=== PATIENT | male | born 1980 | race Two or more races ===

== ENCOUNTER 2017-02-25 16:30 | Emergency (ER) | payer SELFPAY ==
[~2017-02-25] VITALS: Ht 175.3 cm; Wt 79.4 kg
[~2017-02-25 16:30] MED LIST: NKM; UNOBMED
[2017-02-25] MEDS ORDERED: Bacitracin Oint UD TOPIC ONE (17:00)
[2017-02-25] MEDS ORDERED: TdaP Vaccine 0.5ml Syr IM ONE (17:00)
[2017-02-25] MEDS ORDERED: Lidocaine 1% 10mg/ml/Epi 0.005mg/ml 30ml vial INJ ONE (17:00)
[2017-02-25 17:14] VITALS: BP 118/90
--- NOTE | 2017-02-25 17:23 | Emergency Room Report ---
History of Present Illness General Chief Complaint: Laceration Source: Patient (Melissa Garza) Present Illness HPI 37-year-old male presents emergency department brought by ambulance for altered mental status and facial laceration. History of present illness and ROS is limited due to poor patient cooperation in addition to language barrier. Patient is primarily Azeri speaking. Patient denies alcohol consumption. (Melissa Garza) Allergies: Coded Allergies: No Known Allergies (Unverified , 04/23/15) Patient History Limited by: language barrier, other - ETOH/AMS Past Medical History: see triage record Past Surgical History: none Pertinent Family History: none Reviewed Nursing Documentation: PMH: Agreed, PSxH: Agreed (Melissa Garza) Nursing Documentation-PMH Past Medical History: No Stated History Hx Cardiac Problems: No Hx Cancer: No Hx Gastrointestinal Problems: No Hx Neurological Problems: Yes Hx Seizures: Yes - due to alchohol withdrawal. (Melissa Garza) Review of Systems All Other Systems: limited - due to intoxication, and poor pt. cooperation. (Melissa Garza) Physical Exam Vital Signs Date Time Temp Pulse Resp B/P Pulse Ox O2 Delivery O2 Flow Rate FiO2 02/25/17 16:33 98.4 88 16 118/90 99 Room Air Sp02 EP Interpretation: reviewed, normal General Appearance: no apparent distress, alert, GCS 15, non-toxic, lethargic Head: normocephalic, other - 1cm facial laceration above the right eyebrow, no bruising, swelling or bony ttp noted. bleeding is controlled at this time. Eyes: bilateral eye EOMI, bilateral eye PERRL, bilateral eye normal inspection ENT: hearing grossly normal, no angioedema, uvula midline, other - no hemotympanum Neck: full range of motion, no bony tend, supple/symm/no masses Respiratory: lungs clear, normal breath sounds Cardiovascular #1: regular rate, rhythm, no edema Gastrointestinal: normal bowel sounds, non tender, soft, no guarding, no rebound Rectal: deferred Musculoskeletal: back normal, normal range of motion, non-tender, no calf tenderness Neurologic: alert, responsive, motor strength/tone normal, sensory intact Psychiatric: judgement/insight normal, memory normal, mood/affect normal Skin: normal color, no rash, warm/dry, well hydrated Lymphatic: no adenopathy (Melissa Garza) Medical Decision Making PA Attestation Dr. cm is my supervising Physician whom patient management has been discussed with. (Melissa Garza) Diagnostic Impression: Primary Impression: Laceration Additional Impression: Alcohol intoxication Qualified Codes: F10.120 - Alcohol abuse with intoxication, uncomplicated ER Course Pt. presents to the ED intoxicated with alcohol / AMS with obvious laceration to the right forehead. Ddx considered but are not limited to ETOH, Trauma, Syncope, dementia, OD, head injury, Subdural hematoma Vital signs: are WNL, pt. is afebrile H&PE are most consistent with ETOH abuse. and Head laceration- no signs of oral trauma or autonomic instability. ORDERS: -EKG: NSR 91 BPM, borderline prolonged QTC at [address] elevation interpreted by Dr. Pritchard. - Serum ETOH: 435 - CBC: pending -CMP:pending -Salicylates: WNL -Acetaminophen: WNL -UDS: negative -UA: negative - Dilantin level: less than 0.8 -CT Head No Contrast: No evidence of acute fracture, hemorrhage, or intracranial process Per: official radiology report. ED INTERVENTIONS: - Pt. refuses laceration repair with sutures. -1000 cc NS -100mg Thiamine IV - Observance while he detoxifies. Pt. was allowed to sleep/rest. until clinically sober and all lab results are evaluated. Pt is signed out to Dr. Almeida. Labs Test 02/25/17 18:05 02/25/17 18:19 Urine Color Pale yellow Urine Appearance Clear Urine pH 7 (4.5-8.0) Urine Specific [place] 1.005 (1.005-1.035) Urine Protein Negative (NEGATIVE) Urine Glucose (UA) Negative (NEGATIVE) Urine Ketones Negative (NEGATIVE) Urine Occult Blood 1+ (NEGATIVE) Urine Nitrite Negative (NEGATIVE) Urine Bilirubin Negative (NEGATIVE) Urine Urobilinogen Normal MG/DL (0.0-1.0) Urine Leukocyte Esterase Negative (NEGATIVE) Urine RBC 0-2 /HPF (0 - 0) Urine WBC 0 /HPF (0 - 0) Urine Squamous Epithelial Cells None /LPF (NONE/OCC) Urine Bacteria None /HPF (NONE) Urine Opiates Screen Negative (NEGATIVE) Urine Barbiturates Screen Negative (NEGATIVE) Phencyclidine (PCP) Screen Negative (NEGATIVE) Urine Amphetamines Screen Negative (NEGATIVE) Urine Benzodiazepines Screen Negative (NEGATIVE) Urine Cocaine Screen Negative (NEGATIVE) Urine Marijuana (THC) Screen Negative (NEGATIVE) (Melissa Garza.AJonnie) ER Course Received signout from [facility] at 9pm for dispo pending sobriety Patient observed overnight by 5am, ambulating with steady gait in ED, tolerating PO, requesting to leave, feels better Still refusing primary repair of laceration DC home Counselled against excessive ETOH abuse (YOJANA ALMEIDA M.D.) EKG Diagnostic Results EP Interpretation: interpreted by Dr. Pritchard. Rate: normal - 91 BPM Rhythm: NSR ST Segments: no acute changes ASA given to the pt in ED: No PA Scribe Text NSR 91 BPM, borderline prolonged QTC at [address] elevation interpreted by Dr. Pritchard. (Melissa Garza P.AJonnie) Last Vital Signs Date Time Temp Pulse Resp B/P Pulse Ox O2 Delivery O2 Flow Rate FiO2 02/25/17 17:14 98.4 88 16 118/90 99 Room Air (Melissa Garza P.AJonnie) Status: improved (YOJANA ALMEIDA M.D.) Disposition: HOME, SELF-CARE Signed Out To: Dr. Almeida (Melissa Garza P.AJonnie) Referrals: NOT CHOSEN IPA/,REFERRING (PCP) Patient Instructions: Alcohol Abuse and Nutrition, Alcohol Intoxication, Easy- to-Read Melissa Garza February 25, 2017 17:22 YOJANA ALMEIDA M.D. February 26, 2017 05:34
[2017-02-25 18:26] LABS: APPEARANCE,URINE CLEAR; KETONES,URINE NEGATIVE (NEGATIVE); LEUKOCYTE ESTERASE ,URINE NEGATIVE (NEGATIVE); NITRITE,URINE NEGATIVE (NEGATIVE); PH,URINE 7 (4.5-8.0); PROTEIN,URINE NEGATIVE (NEGATIVE); UROBILINOGEN,URINE NORMAL MG/DL (0.0-1.0)
[2017-02-25 18:31] LABS: RBC,URINE 0-2 /HPF (0 - 0); WBC,URINE 0 /HPF (0 - 0)
[2017-02-25 19:08] LABS: ALCOHOL 435 mg/dL
[2017-02-25] MEDS ORDERED: Thiamine HCl 100 MG in D5W 55 ML IVPB SCH (22:45)
[2017-02-25 23:01] LABS: BASOPHILS % (AUTO) 0.6 % (0.0-2.0); EOSINOPHILS % (AUTO) 0.5 % (0.0-3.0); LYMPHOCYTES % (AUTO) 42.2 % (20.0-45.0); MEAN CORPUSCULAR HEMOGLOBIN 34.7 PG (27.0-31.0); MEAN CORPUSCULAR HGB CONC 35.4 G/DL (32.0-36.0); MEAN CORPUSCULAR VOLUME 98 FL (80-99); MEAN PLATELET VOLUME 8.2 FL (6.5-10.1); MONOCYTES % (AUTO) 4.3 % (1.0-10.0); NEUTROPHILS % (AUTO) 52.4 % (45.0-75.0); PLATELET COUNT 134 K/UL (150-450); RED BLOOD COUNT 3.59 M/UL (4.70-6.10); RED CELL DISTRIBUTION WIDTH 12.3 % (11.6-14.8); WHITE BLOOD COUNT 7.2 K/UL (4.8-10.8)
[2017-02-25 23:07] LABS: ALANINE AMINOTRANSFERASE 18 U/L (3-41); ALBUMIN/GLOBULIN RATIO 1.2 (1.0-2.7); ANION GAP 19 (5-15); ASPARTATE AMINO TRANSFERASE 39 U/L (5-40); CARBON DIOXIDE 25 mEQ/L (20-30); CHLORIDE 102 mEQ/L (98-107); CREATININE 0.5 mg/dL (0.7-1.2); GLOMERULAR FILTRATION RATE > 60 mL/min (>60); HEMOLYSIS 4; POTASSIUM 3.7 mEQ/L (3.4-4.9); SODIUM 146 mEQ/L (135-145); TOTAL PROTEIN 7.5 g/dL (6.6-8.7)
[2017-02-25 23:19] VITALS: BP 95/67
[2017-02-26 04:56] VITALS: BP_SYST 119; BP_SYST 95; BP_DIAS 67; BP_DIAS 82
--- NOTE | 2017-02-26 09:52 | Diagnostic Imaging Report ---
Indication: Altered mental status Technique: Contiguous 5 mm thick transaxial imaging of the head obtained in a Siemens Sensation [address] scanner. Soft tissue and bone windows generated. Total Dose length Product (DLP): [address] Dose Index Volume (CTDIvol): 70.38 mGy Comparison: none Findings: The size and configuration of the cortical sulci, basal cisterns, and ventricles are within normal limits for age. There is no mass effect, midline shift, or edema identified. There is no evidence of acute hemorrhage or abnormal intra-axial or extra-axial fluid collections. The bones and soft tissues are unremarkable. Impression: No mass effect, edema or acute bleed. The CT scanner at [facility] is accredited by the [employer] and the scans are performed using dose optimization techniques as appropriate to a performed exam including Automatic Exposure control.
--- NOTE | 2017-02-28 14:49 | Cardiology Report ---
APPROVED REPORT EKG Measurement Heart [id number] Normal sinus rhythm Prolonged QT Abnormal ECG
== END 2017-02-26 04:58 | disposition home or self-care (01) ==
LOC: EDBD 16:30 → EMR 16:43
DX: S01.111A Laceration without foreign body of right eyelid and periocular area, initial encounter (principal); X58.XXXA Exposure to other specified factors, initial encounter; Y93.9 Activity, unspecified; Y99.9 Unspecified external cause status; F10.239 Alcohol dependence with withdrawal, unspecified; F10.229 Alcohol dependence with intoxication, unspecified
CPT/HCPCS: 36415; 70450; 80053; 80185; 80300; 81003; 85025; 90471; 90715; 93005; 96372; 99284; G0480; 80329